=== PATIENT | female | born 2000 | race Caucasian/White ===

== ENCOUNTER 2019-05-25 10:51 | Emergency (ER) | payer OTHER, SELFPAY ==
[~2019-05-25] VITALS: Ht 167.6 cm; Wt 80.9 kg
[2019-05-25 10:52] VITALS: BP 123/82
[2019-05-25] MEDS ORDERED: IMIT50TA PO (10:59)
[2019-05-25] MEDS ORDERED: INDE80CA9 PO (10:59)
[2019-05-25 15:38] LABS: CHLAMYDIA DNA AMPLIFICATION NEGATIVE (NEGATIVE); GC DNA AMPLIFICATION NEGATIVE (NEGATIVE)
[2019-05-28 10:12] LABS: HSV-1 DNA Negative (Negative); HSV-2 DNA Negative (Negative)
== END 2019-05-25 15:02 | disposition home or self-care (01) ==
LOC: M ED 10:51
DX: N89.9 Noninflammatory disorder of vagina, unspecified (principal); I49.8 Other specified cardiac arrhythmias; G43.909 Migraine, unspecified, not intractable, without status migrainosus; Z79.899 Other long term (current) drug therapy

== ENCOUNTER 2021-09-20 15:59 | Emergency (ER) | payer OTHER ==
[~2021-09-20] VITALS: Ht 167.6 cm; Wt 113.1 kg
[~2021-09-20 15:59] MED LIST: IMIT50TA PO; INDE80CA9 PO
--- OUTSIDE RECORDS SUMMARY | 2021-09-20 16:06 | CCD ---
Author Author [facility] Address Unknown Phone Unavailable Support Name Relationship Address Phone RE Next Of Kin Unknown Unavailable JEANNE VILLALOBOS Next Of Kin [address], [place] [id number] Re-disclosure Warning The records that you are about to access may contain information from federally-assisted alcohol or drug abuse programs. If such information is present, then the following federally mandated warning applies: This information has been disclosed to you from records protected by federal confidentiality rules (42 CFR part 2). The federal rules prohibit you from making any further disclosure of this information unless further disclosure is expressly permitted by the written consent of the person to whom it pertains or as otherwise permitted by 42 CFR part 2. A general authorization for the release of medical or other information is NOT sufficient for this purpose. The Federal rules restrict any use of the information to criminally investigate or prosecute any alcohol or drug abuse patient.The records that you are about to access may contain highly sensitive health information, the redisclosure of which is protected by Article 27-F of the [facility] Public Health law. If you continue you may have access to information: Regarding HIV / AIDS; Provided by facilities licensed or operated by the [facility] Office of Mental Health; or Provided by the [facility] Office for People With Developmental Disabilities. If such information is present, then the following [facility] mandated warning applies: This information has been disclosed to you from confidential records which are protected by state law. State law prohibits you from making any further disclosure of this information without the specific written consent of the person to whom it pertains, or as otherwise permitted by law. Any unauthorized further disclosure in violation of state law may result in a fine or half-way sentence or both. A general authorization for the release of medical or other information is NOT sufficient authorization for further disc losure. Immunizations Vaccine Date Status Description Data Source(s) COVID-19 VACCINE Pfizer 01/24/2021 12:00:00 AM EDT completed [facility] Vaccine Series Complete: NOThis Data was Submitted to [facility] Via [email or web address]. Medications No Information Insurance Providers Payer name Policy type / Coverage type Policy ID Covered republican ID Covered republican's relationship to luu Policy Luu Plan Information SELF PAY ONLY [facility] [id number] Problems, Conditions, and Diagnoses No Information Surgeries/Procedures No Information Results No Information Social History No Information
[2021-09-20] MEDS ORDERED: METF-839 PO (16:08)
[2021-09-20] MEDS ORDERED: MAXA10TA14 PO (16:08)
[2021-09-20] MEDS ORDERED: NAPROXEN 250 MG TAB PO ONE (17:00)
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
[2021-09-20 18:45] VITALS: BP 129/59
== END 2021-09-20 18:46 | disposition home or self-care (01) ==
LOC: M ED 15:59
DX: M25.522 Pain in left elbow (principal); V43.52XA Car driver injured in collision with other type car in traffic accident, initial encounter; Y92.9 Unspecified place or not applicable; Y93.9 Activity, unspecified; Y99.9 Unspecified external cause status; Z79.899 Other long term (current) drug therapy

== ENCOUNTER 2022-01-01 11:52 | Emergency (ER) | payer OTHER ==
[~2022-01-01] VITALS: Ht 167.6 cm; Wt 111.4 kg
[~2022-01-01 11:52] MED LIST changes: +MAXA10TA14 PO; +METF-839 PO
[2022-01-01] MEDS ORDERED: NS 1,000 ML IV ONE (13:35)
[2022-01-01 14:15] LABS: BASO # 0.1 10^3/uL (0.0-0.2); BASO % 0.5 % (0.0-1.0); EOS # 0.2 10^3/uL (0.0-0.5); HEMATOCRIT 39.2 % (36.0-47.0); HEMOGLOBIN 12.7 g/dl (12.0-15.5); LYMPH # 1.2 10^3/uL (1.5-5.0); LYMPH % 10.8 % (24.0-44.0); MEAN CORPUSCULAR HEMOGLOBIN 26.8 pg (27.0-33.0); MEAN CORPUSCULAR HGB CONC 32.4 g/dl (32.0-36.5); MEAN CORPUSCULAR VOLUME 82.9 fl (80.0-96.0); MONO # 0.5 10^3/uL (0.0-0.8); MONO % 4.9 % (2.0-8.0); NEUTROPHILS % 81.5 % (36.0-66.0); PLATELET COUNT, AUTOMATED 357 10^3/uL (150-450); RED BLOOD COUNT 4.73 10^6/uL (4.00-5.40)
[2022-01-01 14:47] LABS: HCG, SERUM QUALITATIVE NEGATIVE (NEGATIVE)
[2022-01-01 14:52] LABS: BLOOD UREA NITROGEN 10 MG/DL (7-18); CALCIUM LEVEL 9.3 MG/DL (8.5-10.1); CARBON DIOXIDE LEVEL 23 MEQ/L (21-32); CHLORIDE LEVEL 110 MEQ/L (98-107); CREATININE FOR GFR 0.65 MG/DL (0.55-1.30); GLOMERULAR FILTRATION RATE > 60.0 (>60); GLUCOSE, FASTING 100 MG/DL (70-100); MAGNESIUM LEVEL 2.1 MG/DL (1.8-2.4); POTASSIUM SERUM 4.1 MEQ/L (3.5-5.1); SODIUM LEVEL 139 MEQ/L (136-145)
[2022-01-01 15:30] VITALS: BP 120/74
== END 2022-01-01 15:50 | disposition home or self-care (01) ==
LOC: EDBD 11:52 → M ED 11:52
DX: R55 Syncope and collapse (principal); G43.909 Migraine, unspecified, not intractable, without status migrainosus; E28.2 Polycystic ovarian syndrome; I49.8 Other specified cardiac arrhythmias; Z79.899 Other long term (current) drug therapy